=== PATIENT | male | born 1940 | race Caucasian/White ===

== ENCOUNTER 2025-05-22 17:22 | Emergency (ER) | payer MEDICARE, SELFPAY ==
--- NOTE | ~2025-05-22 | CT_ITS ---
EXAMINATION: CT facial bones wo con DATE: 05/22/2025 17:50 INDICATION: Fall TECHNIQUE: Computed tomography (CT) of the facial bones and maxillofacial region was performed without intravenous contrast. The dose-length product was 304.87 mGy-cm. COMPARISON: None. FINDINGS: Small left frontal scalp hematoma. Soft tissue swelling about the nose. CT appearance of the globes and orbits are unremarkable. Mild bilateral preseptal soft tissue swelling. Possible bandage material about the nose. Normal opacification of the paranasal sinuses. No fracture identified. Ostiomeatal co mplexes are patent. IMPRESSION: 1. No fracture identified. 2. Small left scalp hematoma. 3. Soft tissue swelling about the nose with a few locules of air. The findings are presumably due to recent trauma. Possible bandage material about the nose. 4. Mild bilateral preseptal soft tissue swelling. If symptoms persist or worsen, consider a short-term follow-up study or additional imaging for further assessment. Reviewed, dictated and finalized at location Q. IMPRESSION: 1. No fracture identified. 2. Small left scalp hematoma. 3. Soft tissue swelling about the nose with a few locules of air. The findings are presumably due to recent trauma. Possible bandage material about the nose. 4. Mild bilateral preseptal soft tissue swelling. If symptoms persist or worsen, consider a short-term follow-up study or additio nal imaging for further assessment.
--- NOTE | ~2025-05-22 | CT_ITS ---
EXAMINATION: CT brain wo con DATE: 05/22/2025 17:50 INDICATION: Fall TECHNIQUE: Computed tomography (CT) of the head was performed without intravenous contrast. The dose-length product was 304.87 mGy-cm. COMPARISON: None FINDINGS: No acute intracranial hemorrhage. No mass effect. No midline shift. No hydrocephalus. There are several low density regions scattered throughout the periventricular and deep white matter which are favored to represent chronic ischemic white matter change. Tiny bilateral basal ganglier lacunar infarctions of indeterminate age. No skull fracture. Visualized paranasal sinuses and mastoid air cells are clear. Small scalp hematoma in the left frontal region. Soft tissue swelling about the nose. IMPRESSION: 1. No acute intracranial hemorrhage. No mass effect. 2. Tiny lacunar infarction in the right basal ganglia and a tiny lacunar infarction in the left basal ganglia. The lacunar infarctions are of indeterminate age possibly old. Consider a brain MRI for further assessment 3. Probable chronic ischemic white matter change. 4. Soft tissue swelling about the nose. 5. Small left frontal scalp hematoma. Reviewed, dictated and finalized at location Q. IMPRESSION: 1. No acute intracranial hemorrhage. No mass effect. 2. Tiny lacunar infarction in the right basal ganglia and a tiny lacunar infarc tion in the left basal ganglia. The lacunar infarctions are of indeterminate ag e possibly old. Consider a brain MRI for further assessment 3. Probable chronic ischemic white matter change. 4. Soft tissue swelling about the nose. 5. Small left frontal scalp hematoma.
[2025-05-22 17:30] VITALS: BP 176/62; PULSE 66; RESP 20; TEMP 36.4; O2SAT 95
[2025-05-22] MEDS: LIDOCAINE 1% LOCAL INJ 10 ML VIAL 5 ML INFILTRATE (18:21)
--- NOTE | 2025-05-22 19:12 | ED_ITS ---
HPI - Head Injury General Chief complaint: Trauma Stated complaint: facial trauma, on blood thinner Time Seen by Provider: 05/22/25 17:29 Source: patient and family Mode of arrival: ambulatory Limitations: no limitations History of Present Illness HPI Narrative: 84-year-old with a history of of CVA, status post carotid stent on Plavix here with a complains of [place] [employer] patient states that he lost his balance and fell forward sustained a laceration on his forehead and nose. Denies any LOC. MD Complaint: head injury and fall Onset (ago): hour(s) (2) Mechanism of Injury: fall Place: outdoors Loss of Consciousness: no Location of injury: frontal and face Severity: moderate Radiation: none Other Injuries: laceration Context: other anticoagulant use Associated symptoms: denies other symptoms Related Data Allergies Allergy/AdvReac Type Severity Reaction Status Date / Time No Known Allergies Allergy Verified 05/22/25 18:20 Review of Systems Review of Systems: All systems reviewed & are unremarkable except as noted in HPI and below Constitutional: Constitutional: Reports no additional constitutional complaints Eyes: Eyes: Reports no additional eye complaints ENT: Reports system reviewed and no additional complaints, except as documented Cardiovascular: Cardiovascular: Reports no additional cardiovascular complaints Respiratory: Respiratory: Reports no additional respiratory complaints Gastrointestinal: Gastrointestinal: Reports no additional gastrointestinal complaints Genitourinary: Genitourinary: Reports no additional male genitourinary complaints Musculoskeletal: Musculoskeletal: Reports no additional musculoskeletal complaints Neurologic: Reports system reviewed and no additional complaints, except as documented Exam Narrative: GENERAL: Well-appearing, well-nourished, and in no acute distress. HEAD: Normocephalic, atraumatic.Abrasion on the forehead EYES: PERRLA and EOMI. ENT: Nares clear, no rhinorrhea or epistaxis. Mucous membranes moist. complex laceration on the bridge of the nose extending on both side with moderate bleeding NECK: Supple. CHEST: Clear to auscultation. No respiratory distress. HEART: Regular rate and rhythm. No murmur heard. Normal peripheral pulses. ABDOMEN: Soft, nontender, nondistended, normal active bowel sounds. EXTREMITIES: Normal range of motion. No edema. SKIN: Warm, dry, no rash. NEURO: No focal deficits. Alert and oriented x3. PSYCH: Normal mood and affect. Course Course Emergency Course: laceration was sutured , CT scan showed no fx or bleeding , pt and his were informed . fall precaution and laceration care instructions were given Vital Signs Vital signs: Vital Signs Temperature 36.4 C 05/22/25 17:30 Pulse Rate 66 05/22/25 17:30 Respiratory Rate 20 05/22/25 17:30 Blood Pressure 176/62 H 05/22/25 17:30 Pulse Oximetry 95 05/22/25 17:30 Oxygen Delivery Room Air 05/22/25 17:30 Temperature 36.4 C 05/22/25 17:30 Pulse Rate 66 05/22/25 17:30 Respiratory Rate 20 05/22/25 17:30 Blood Pressure 176/62 H 05/22/25 17:30 Pulse Oximetry 95 05/22/25 17:30 Oxygen Delivery Room Air 05/22/25 17:30 Procedures Laceration Laceration 1: Date: 05/22/25 Site: face Description: irregular Depth: simple, single layer Local Anesthetic: lidocaine 1% Amount of anesthesia used (mL): 5 ====== Skin Level ====== Skin layer closed with: nylon Size (cm): 5-0 Number of sutures: 10 Technique: running ====== Subcutaneous Layer ====== ====== Muscle Layer ====== ====== Tendon Layer ====== MDM - Head Injury Differential Diagnosis Differential diagnosis: Likely concussion without loss of consciousness, closed head injury, subarachnoid hematoma and subdural hematoma Medical Records Attestation: I reviewed the patient's medical records. Imaging Data Radiologist's impression: ITS Impressions Head CT 05/22/25 17:51 IMPRESSION: 1. No acute intracranial hemorrhage. No mass effect. 2. Tiny lacunar infarction in the right basal ganglia and a tiny lacunar infarction in the left basal ganglia. The lacunar infarctions are of indeterminate age possibly old. Consider a brain MRI for further assessment 3. Probable chronic ischemic white matter change. 4. Soft tissue swelling about the nose. 5. Small left frontal scalp hematoma. Face CT 05/22/25 17:55 IMPRESSION: 1. No fracture identified. 2. Small left scalp hematoma. 3. Soft tissue swelling about the nose with a few locules of air. The findings are presumably due to recent trauma. Possible bandage material about the nose. 4. Mild bilateral preseptal soft tissue swelling. If symptoms persist or worsen, consider a short-term follow-up study or additional imaging for further assessment. Discharge Plan Discharge Clinical Impression: Minor closed head injury Complex laceration of face Qualifiers: Encounter type: initial encounter Qualified Code(s): S01.91XA - Laceration without foreign body of unspecified part of head, initial encounter Clinical Impression: (Ruled Out): Splenic rupture Patient Disposition: Home Condition: Stable Instructions: Head Injury (ED), Facial Laceration (ED) Additional Instructions: continue home medications, hold Plavix tonight . sutures off 5 days. , ice pack to the face. can take Tyleno for pain as needed. Patient Language: Barbadian Follow-up/Referrals: PHYSICIAN NOT ON STAFF,NONSTAFF [Primary Care Provider] Weston Baker MD [Physician, Family Practice]
[2025-05-22 19:20] VITALS: BP 166/68; PULSE 69; RESP 18; O2SAT 97
[2025-05-22 19:32] VITALS: BP 166/68; PULSE 69; RESP 18; O2SAT 97
== END 2025-05-22 19:36 | disposition home or self-care (01) ==
PROVIDERS: Emergency Provider Family Medicine
DX: S01.21XA Laceration without foreign body of nose, initial encounter (principal); Z95.5 Presence of coronary angioplasty implant and graft; Z86.73 Personal history of transient ischemic attack (TIA), and cerebral infarction without residual deficits; Z79.02 Long term (current) use of antithrombotics/antiplatelets; W18.39XA Other fall on same level, initial encounter
CPT/HCPCS: 12011; 70450; 70486; 99284; J2003